=== PATIENT | male | born 2000 | race Two or more races ===

== ENCOUNTER → 2022-09-25 | Outpatient (CLI) | payer MEDICAID ==
[~2022-09-25] MED LIST: ALBUTEROL SULF 2.5 MG/0.5ML(0.5%) NEB SOLN ONE
== END | disposition home or self-care (01) ==
LOC: RT 08:43
PROVIDERS: ATTEND Internal Medicine Pulmonary Disease
DX: J45.909 Unspecified asthma, uncomplicated (principal); R06.02 Shortness of breath
CPT/HCPCS: 94060; 94727; 94729